=== PATIENT | male | born 2005 | race Caucasian/White ===

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

== ENCOUNTER 2025-07-30 22:16 | Emergency (ER) | payer OTHER ==
[~2025-07-30 22:16] MED LIST: ACET-66 PO; GUAIFDM PO; IBUP-1554 PO
== END 2025-07-30 23:30 | disposition left against medical advice (07) ==
LOC: EMS 22:16
DX: H92.09 Otalgia, unspecified ear (principal); Z53.21 Procedure and treatment not carried out due to patient leaving prior to being seen by health care provider